=== PATIENT | female | born 1965 | race Caucasian/White ===

== ENCOUNTER 2018-09-18 13:40 | Outpatient (CLI) | payer BC ==
--- NOTE | 2018-09-18 16:24 | MRI ---
CERVICAL SPINE MRI WITHOUT IV CONTRAST: 09/18/18 HISTORY: 52-year-old female with history of M50.30 - cervical disc degeneration, pain in the back of the neck with numbness in thumbs. No significant abnormal marrow signal. Visualized brain and posterior fossa appear unremarkable. No a bnormal marrow signal. C2-C3 disc is unremarkable. C3-C4: No canal, lateral recess or foraminal stenosis. C4-C5: There is some generalized disc osteophytosis with mild indention of the ventral thecal sac as well as some mild left foraminal stenosis. C5-C6: There is diffuse disc osteophytosis with minimal indention of the ventral thecal sac but no si gnificant lateral recess or foraminal stenosis. C6-C7: No canal, lateral recess or foraminal stenosis. C7-T1: Unremarkable. No spinal cord mass or spinal cord compression. IMPRESSION: Mild disc osteophytosis changes particularly at C4-C5 and C5-C6 with mild indention of the ventral th ecal sac but without evidence for belinda cord compression. No other significant abnormality. POS: MANSI
== END 2018-09-18 13:41 | disposition home or self-care (01) ==
LOC: TBSIIMAG 13:40
PROVIDERS: ATTEND Neurological Surgery
DX: M50.30 Other cervical disc degeneration, unspecified cervical region (principal)
CPT/HCPCS: 72141

== ENCOUNTER 2019-03-25 06:21 | Day surgery (SDC) | payer BC ==
[2019-03-22 13:16] VITALS: BMI 34.5
[2019-03-25] MEDS ORDERED: Thrombin 5000 UNITS/5 ML VIAL ONE (06:37)
[2019-03-25] MEDS ORDERED: Sodium Chloride 0.9% 10 ML ONE (06:37)
[2019-03-25] MEDS ORDERED: Bacitracin Zinc Ointment 30 gm TUBE ONE (06:37)
[2019-03-25 07:17] LABS: #Eosinphils 0.2 thou/uL (0.0-0.7); #Lymphocytes 1.8 thou/uL (1.20-3.40); #Monocytes 0.7 thou/uL (0.11-0.59); #Neutrophils 5.4 thou/uL (1.40-6.50); %Basophils 0.5 % (0.0-1.0); %Eosinophils 2.2 % (0.0-10.0); %Lymphocytes 22.1 % (21.0-51.0); %Monocytes 8.9 % (0.0-10.0); %Neutrophils 66.4 % (42.0-75.0); Hemoglobin 12.2 g/dL (12.0-16.0); Mean Corpuscular HGB CONC 34.7 g/dL (32.0-36.0); Mean Corpuscular Hemoglobin 32.3 pg (27.0-31.0); Mean Corpuscular Volume 93.1 fL (78.0-98.0); Mean Platelet Volume 7.1 fL (7.4-10.4); Platelet Count 257 thou/uL (130-400); RBC Distribution Width 12.1 % (11.5-14.5); Red Blood Cell (RBC) Count 3.79 mill/uL (4.20-5.40); White Blood Cell (WBC) Count 8.2 thou/uL (4.8-10.8)
[2019-03-25] MEDS ORDERED: Fentanyl 100 MCG/2 ML VIAL ONE ×4 (07:21→10:49)
[2019-03-25 07:31] LABS: Anion Gap 12 mmol/L (10-20); BUN (Urea Nitrogen) 18 mg/dL (9.8-20.1); Calc. Creatinine Clearance 104 mL/min (70-130); Calcium 9.5 mg/dL (7.8-10.44); Carbon Dioxide 24 mmol/L (22-29); Chloride 109 mmol/L (98-107); Estimated GFR-MDRD 69; Glucose 101 mg/dL (70-105); Potassium 4.1 mmol/L (3.5-5.1); Sodium 141 mmol/L (136-145)
[2019-03-25] MEDS ORDERED: Levofloxacin 500 mg/D5W 100 ml Premix Bag ONE (07:33)
[2019-03-25] MEDS ORDERED: Clindamycin/D5W 900 mg/50 ml Premix Bag ONE (07:33)
[2019-03-25] MEDS ORDERED: Ondansetron HCl/PF 4 MG/2 ML Vial IVP PRN (09:53)
[2019-03-25] MEDS ORDERED: Non-Formulary Medication 1 EACH PO PRN (09:53)
[2019-03-25] MEDS ORDERED: Promethazine HCl 25 MG/ML VIAL IM/IV PRN (09:53)
[2019-03-25] MEDS ORDERED: HYDROcodone/Acetaminophen 5/325 mg Tablet PO PRN ×2 (09:58→09:59)
--- NOTE | 2019-03-25 11:41 | OP ---
DATE OF PROCEDURE: 03/25/2019 [employer]: Lex Whitley PA-C PROCEDURE PERFORMED: Anterior cervical diskectomy C4-C5 and C5-C6; interbody arthrodesis; intervertebral biomechanical device; local morselized autograft; demineralized bone matrix; anterior titanium instrumentation, C4-C5 and C5-C6. DESCRIPTION OF PROCEDURE: The patient was brought to the operating room and intubated. She was positioned supine with the head in modest extension on a gel-filled donut. An incision was made in the right precervical area and dissected medial to the sternocleidomastoid muscle, identified the anterior cervical spinal, and the level was confirmed by x-ray. We debrided anterior osteophytes, placed distraction across the disk spaces, and using the operative microscope and microdissection techniques, completely removed the intervertebral disks from foramen to foramen at C4-C5 and C5-C6. Next, bony endplates were decorticated for the purpose of arthrodesis, and appropriate-sized intervertebral biomechanical PEEK device was brought into the field filled with demineralized bone matrix and local morselized autograft, and tapped in place securely at C4-C5 and C5-C6. Next, an anterior plate was brought into the field and secured to C4, C5, and C6 using two 14-mm screws at each level. Wound was then extensively irrigated. Maximum hemostasis was secured, and the wound was closed in anatomic layers. Job ID: [id number]
[2019-03-25] MEDS ORDERED: HYDROcodone/Acetaminophen 5/325 mg Tablet ONE ×2 (12:45→13:24)
[2019-03-25] MEDS ORDERED: Lidocaine 1% PF 5 ML VIAL ONE ×2 (13:14→13:50)
[2019-03-25] MEDS ORDERED: Calcium Chloride 1 GM/10 ML Abboject SYRINGE ONE (13:14)
[2019-03-25] MEDS ORDERED: PHENYLEPHRINE-NS 100 MCG/ML 10 ML SYRINGE ONE (13:14)
[2019-03-25] MEDS ORDERED: PROPOFOL 200 MG/20 ML VIAL ONE ×2 (13:14→13:50)
[2019-03-25] MEDS ORDERED: ePHEDrine 50 MG/ML VIAL ONE (13:14)
[2019-03-25] MEDS ORDERED: Glycopyrrolate 0.2 MG/ML 5 ML SYRINGE ONE ×2 (13:14→13:50)
[2019-03-25] MEDS ORDERED: Ondansetron PF 4 MG/2 ML Vial ONE ×2 (13:14→13:50)
[2019-03-25] MEDS ORDERED: Rocuronium Bromide 10 MG/ML (10ML VIAL) ONE ×2 (13:14→13:50)
== END 2019-03-25 13:33 | disposition home or self-care (01) ==
LOC: SDC 06:21
PROVIDERS: ATTEND Neurological Surgery
PROC: 0RG20A0 Fusion of 2 or more Cervical Vertebral Joints with Interbody Fusion Device, Anterior Approach, Anterior Column, Open Approach (ICD-10-PCS; principal; 2019-03-25)
PROC: 0RT30ZZ Resection of Cervical Vertebral Disc, Open Approach (ICD-10-PCS; principal; 2019-03-25)
DX: M50.121 Cervical disc disorder at C4-C5 level with radiculopathy (principal); M51.36 Other intervertebral disc degeneration, lumbar region; M19.90 Unspecified osteoarthritis, unspecified site; G43.909 Migraine, unspecified, not intractable, without status migrainosus; E07.9 Disorder of thyroid, unspecified; Z79.1 Long term (current) use of non-steroidal anti-inflammatories (NSAID); Z79.51 Long term (current) use of inhaled steroids; Z79.899 Other long term (current) drug therapy; Z88.0 Allergy status to penicillin; Z88.5 Allergy status to narcotic agent; Z98.890 Other specified postprocedural states
CPT/HCPCS: 36415; 76000; 80048; 85025; 93005; 93010; C1713; C1776; J1956; J2001; J2405; J2704; J3010; J3490

== ENCOUNTER 2019-04-09 08:33 | Outpatient (CLI) | payer BC ==
--- NOTE | 2019-04-09 10:46 | RAD ---
CERVICAL SPINE 3 VIEWS: Date: 04/09/19 HISTORY: Cervical radiculopathy, follow-up post surgery. FINDINGS: Anterior cervical fusion changes at C4, C5, and C6 with intradiscal prosthesis. No significant malali gnment. No significant abnormal prevertebral soft tissue swelling. Very mild anterolisthesis of C7 on T1. IMPRESSION: Unremarkable status post anterior cervical fusion at C4, C5, and C6. POS: C
== END 2019-04-09 08:34 | disposition home or self-care (01) ==
LOC: TBSIIMAG 08:33
PROVIDERS: ATTEND Neurological Surgery
DX: M54.12 Radiculopathy, cervical region (principal)
CPT/HCPCS: 72040

== ENCOUNTER 2019-05-29 13:26 | Outpatient (CLI) | payer BC ==
--- NOTE | 2019-05-29 15:38 | RAD ---
THREE VIEWS OF THE CERVICAL SPINE: 05/29/19 COMPARISON: 04/09/19. HISTORY: Neck pain. Patient had cervical fusion on March 25. FINDINGS: Three views of the cervical spine shows the patient to be status post anterior fusion of C4 through C 6 with an anterior plate and screws. Disc spacers are seen in good position within the disc spaces. T he vertebral bodies demonstrate normal height and alignment without fracture or subluxation. No preve rtebral soft tissue swelling is seen. IMPRESSION: Postsurgical changes of the cervical spine without evidence of complication. POS: KLARISSA
== END 2019-05-29 13:27 | disposition home or self-care (01) ==
LOC: TBSIIMAG 13:26
PROVIDERS: ATTEND Neurological Surgery
DX: M50.30 Other cervical disc degeneration, unspecified cervical region (principal); Z98.1 Arthrodesis status
CPT/HCPCS: 72040

== ENCOUNTER 2019-09-10 15:28 | Outpatient (CLI) | payer BC ==
--- NOTE | 2019-09-10 16:37 | MRI ---
Exam: MRI cervical spine without contrast HISTORY: Cervical fusion. Degenerative disc disease. Surgery in March 2019. Persistent pain radiating i n the left shoulder, into the elbow. COMPARISON: 09/18/2018 FINDINGS: Persistent straightening of normal cervical lordosis. Interval cervical fusion from C4 through C6 wi th anterior fusion plate and transvertebral body screw. Associated metallic susceptibly artifact. Disc prosthesis at C4-C5 and C5 C6. No significant STIR hyperintensity to suggest vertebral body dionisio a or ligamentous injury. Appropriate T1 marrow signal intensity of the C2, C3 and C7 vertebral bodies, as well as the upper thoracic vertebra. Visualized brain parenchyma, cervical medullary junction, cervical cord and the upper thoracic cord h ave a normal size and intensity. C2-C3: No significant central canal stenosis. Mild to moderate right neural foraminal narrowing due t o uncovertebral and facet hypertrophy. Left neural foramen is patent. C3-C4: Broad-based disc bulge abuts the thecal sac. No significant central canal stenosis. Bilaterall y, the neural foramina are patent. C4-C5: Central osteophyte ridge. Disc prosthesis. Mild central canal stenosis. Bilaterally, the neura l foramina are patent. C5-C6: Broad-based osteophyte ridge. Disc prosthesis. No significant central canal stenosis. Bilatera lly, neural foramina are patent. C6-C7: Mild loss of disc space height. Broad-based discussed by complex. Mild mass effect upon the th ecal sac. No significant central canal stenosis. Bilaterally, neural foramina are patent C7-T1: No significant central canal stenosis or significant neural foraminal narrowing. IMPRESSION: 1. Anterior cervical fusion from C4 through C6. 2. No significant central canal stenosis or significant neural foraminal narrowing Transcribed Date/Time: 09/10/2019 5:05 PM
== END 2019-09-10 15:29 | disposition home or self-care (01) ==
LOC: TBSIIMAG 15:28
PROVIDERS: ATTEND Neurological Surgery
DX: M50.30 Other cervical disc degeneration, unspecified cervical region (principal); Z98.1 Arthrodesis status
CPT/HCPCS: 72141

== ENCOUNTER 2019-09-18 12:45 | Outpatient (CLI) | payer BC ==
--- NOTE | 2019-09-18 14:21 | RAD ---
CERVICAL SPINE 5 VIEWS: Date: 09/18/19 HISTORY: Postop follow-up. Cervical pain. FINDINGS: Postop changes are noted with anterior plate and screws transfixing C4, C5, and C6. Interbody disc im plants are noted. Plate and screws and implants appear adequately positioned. Posterior alignment is maintained. There is loss of disc space at C7-T1 and mild degenerative change. No abnormal listhesis or subluxation seen with flexion or extension. IMPRESSION: Postoperative changes as described. POS: OFF
== END 2019-09-18 12:46 | disposition home or self-care (01) ==
LOC: TBSIIMAG 12:45
PROVIDERS: ATTEND Neurological Surgery
DX: M50.30 Other cervical disc degeneration, unspecified cervical region (principal); Z98.890 Other specified postprocedural states
CPT/HCPCS: 72050

== ENCOUNTER 2024-03-24 16:38 | Inpatient (IN) | payer BC ==
[2024-03-24] MEDS ORDERED: Acetaminophen 500 MG TAB ONE (17:18)
[2024-03-24] MEDS ORDERED: Orphenadrine Citrate 60 MG/2 ML VIAL ONE (17:18)
[2024-03-24] MEDS ORDERED: HYDROmorphone 0.5 MG/0.5 ML SYRINGE ONE ×2 (17:18→19:31)
[2024-03-24] MEDS ORDERED: Acetaminophen 325 MG TAB PO PRN (19:24)
[2024-03-24] MEDS ORDERED: Ondansetron PF 4 MG/2 ML Vial IVP PRN (19:24)
[2024-03-24] MEDS ORDERED: HYDROmorphone 0.5 MG/0.5 ML SYRINGE SLOW IVP PRN (19:28)
[2024-03-24 20:13] VITALS: BMI 36.1
[2024-03-24] MEDS: Enoxaparin 40 MG (0.4 mL) SYRINGE SC SCH (21:35)
[2024-03-24] MEDS: HYDROcodone/Acetaminophen 10/325 mg Tablet PO PRN (21:40)
[2024-03-25] MEDS: fentaNYL 50 mcg/mL 1 mL Vial SLOW IVP PRN (00:12)
[2024-03-25 07:45] LABS: #Basophils 0.05 10x3/uL (0.0-0.2); %Basophils 0.3 % (0.0-1.0); %Eosinophils 0.2 % (0.0-10.0); %Monocytes 6.2 % (0.0-10.0); Hematocrit 40.2 % (36.0-47.0); Hemoglobin 13.2 g/dL (12.0-16.0); Mean Corpuscular HGB CONC 32.8 g/dL (32.0-36.0); Mean Corpuscular Hemoglobin 30.4 pg (27.0-31.0); Mean Corpuscular Volume 92.6 fL (78.0-98.0); Mean Platelet Volume 9.5 fL (7.4-10.4); Platelet Count 298 10x3/uL (130-400); RBC Distribution Width 13.2 % (11.5-14.5); Red Blood Cell (RBC) Count 4.34 mill/uL (4.20-5.40)
[2024-03-25 08:04] LABS: Anion Gap 14 mmol/L (10-20); BUN (Urea Nitrogen) 19 mg/dL (9.8-20.1); Calc. Creatinine Clearance 109 mL/min (70-130); Calcium 8.6 mg/dL (7.8-10.44); Carbon Dioxide 22 mmol/L (22-29); Chloride 108 mmol/L (98-107); Estimated GFR 84; Glucose 80 mg/dL (70-105); Potassium 3.7 mmol/L (3.5-5.1); Sodium 140 mmol/L (136-145)
[2024-03-25] MEDS: predniSONE 50 MG TAB PO SCH (08:04)
[2024-03-25] MEDS: Ketorolac Tromethamine 30 MG (1 mL) VIAL IVP SCH (12:08)
[2024-03-25] MEDS: Gabapentin 300 MG CAP PO SCH ×2 (12:10→21:31)
[2024-03-25] MEDS: tiZANidine HCl 4 MG TAB PO PRN (12:56)
[2024-03-25] MEDS ORDERED: Naloxone HCl 0.4 mg/ml Vial IV PRN (13:47)
[2024-03-25] MEDS ORDERED: diphenhydrAMINE 50 MG/ML VIAL IVP PRN (13:47)
[2024-03-25] MEDS ORDERED: diphenhydrAMINE 50 MG/ML VIAL IM PRN (13:47)
[2024-03-25] MEDS ORDERED: diphenhydrAMINE 25 MG CAP PO PRN (13:47)
[2024-03-25] MEDS ORDERED: Promethazine HCl 25 MG/ML VIAL IM PRN (13:47)
[2024-03-25] MEDS ORDERED: Ondansetron PF 4 MG/2 ML Vial IVP PRN (13:47)
[2024-03-25] MEDS ORDERED: Communication Order-Pharmacy FS SCH (14:00)
[2024-03-25] MEDS: FENTANYL 500 MCG/10 ML VIAL 2,000 MCG in Sodium Chloride 0.9% 60 ML IV PRN (15:13)
[2024-03-25] MEDS: HYDROcodone/Acetaminophen 10/325 mg Tablet PO SCH (15:20)
[2024-03-25] MEDS: Fluticasone Propionate Nasal Spray 16 gm Bottle NASAL SCH (21:30)
[2024-03-25] MEDS: Enoxaparin 40 MG (0.4 mL) SYRINGE SC SCH (21:31)
[2024-03-25] MEDS: Spironolactone 25 MG TAB PO SCH (21:31)
[2024-03-25] MEDS: Polyethylene Glycol 3350 17 GM Packet PO SCH (22:05)
[2024-03-26] MEDS: Levothyroxine 175 MCG TAB PO SCH (07:18)
[2024-03-26] MEDS: Pantoprazole DR 40 MG TAB PO SCH (08:35)
[2024-03-26] MEDS: Polyethylene Glycol 3350 17 GM Packet PO SCH (08:35)
[2024-03-26] MEDS: Gabapentin 300 MG CAP PO SCH ×2 (10:16→14:55)
[2024-03-26] MEDS: Ketorolac Tromethamine 30 MG (1 mL) VIAL IVP SCH (12:05)
[2024-03-26] MEDS: HYDROcodone/Acetaminophen 10/325 mg Tablet PO SCH (13:22)
[2024-03-27 08:32] VITALS: BP 144/75; TEMP 98.1
== END 2024-03-27 11:23 | disposition home or self-care (01) | DRG 552 ==
LOC: ERS 16:38 → T4-A 18:38
PROVIDERS: ADMIT Family Medicine; ATTEND Internal Medicine
DX: M51.16 Intervertebral disc disorders with radiculopathy, lumbar region (principal); Z88.0 Allergy status to penicillin; Z88.5 Allergy status to narcotic agent; Z79.899 Other long term (current) drug therapy; E03.9 Hypothyroidism, unspecified; K21.9 Gastro-esophageal reflux disease without esophagitis; Z90.710 Acquired absence of both cervix and uterus; Z87.891 Personal history of nicotine dependence; L68.0 Hirsutism; E66.9 Obesity, unspecified; Z68.30 Body mass index [BMI] 30.0-30.9, adult; M54.42 Lumbago with sciatica, left side
CPT/HCPCS: 36415; 80048; 85025; 93970; 96374; 96375; 96376; J1100; J1170; J1650; J1885; J2360; J2405; J3010; J3360; J3490; J7512

== ENCOUNTER 2024-11-04 06:47 | Day surgery (SDC) | payer BC ==
[2024-11-01 15:34] VITALS: BMI 35.4
[2024-11-04] MEDS ORDERED: Vancomycin 1 GM VIAL ONE (08:20)
[2024-11-04] MEDS ORDERED: fentaNYL PF 100 MCG/2 ML SYRINGE ONE ×2 (09:11→10:19)
[2024-11-04] MEDS ORDERED: Rocuronium Bromide 10 MG/ML (10ML VIAL) ONE (09:11)
[2024-11-04] MEDS ORDERED: Lidocaine 1% PF 5 ML VIAL ONE (09:11)
[2024-11-04] MEDS ORDERED: PROPOFOL 20 ML ONE (09:11)
[2024-11-04] MEDS ORDERED: Clindamycin/D5W 900 mg/50 ml Premix Bag ONE (09:15)
[2024-11-04] MEDS ORDERED: LevoFLOXacin D5W 500 mg (100 mL) BAG ONE (09:16)
[2024-11-04 09:32] LABS: Hematocrit 40.1 % (36.0-47.0); Hemoglobin 13.1 g/dL (12.0-16.0); Mean Corpuscular HGB CONC 32.7 g/dL (32.0-36.0); Mean Corpuscular Hemoglobin 30.2 pg (27.0-31.0); Mean Corpuscular Volume 92.4 fL (78.0-98.0); Mean Platelet Volume 9.5 fL (7.4-10.4); Platelet Count 259 10x3/uL (130-400); RBC Distribution Width 13.1 % (11.5-14.5); Red Blood Cell (RBC) Count 4.34 mill/uL (4.20-5.40)
[2024-11-04 09:49] LABS: Anion Gap 14 mmol/L (10-20); BUN (Urea Nitrogen) 12 mg/dL (9.8-20.1); Calc. Creatinine Clearance 100 mL/min (70-130); Calcium 9.8 mg/dL (7.8-10.44); Carbon Dioxide 26 mmol/L (22-29); Chloride 106 mmol/L (98-107); Estimated GFR 77; Glucose 96 mg/dL (70-105); Potassium 3.9 mmol/L (3.5-5.1); Sodium 142 mmol/L (136-145)
[2024-11-04] MEDS ORDERED: Ondansetron PF 4 MG/2 ML Vial ONE (10:23)
[2024-11-04] MEDS ORDERED: Ketorolac Tromethamine 30 MG (1 mL) VIAL ONE (10:23)
[2024-11-04] MEDS ORDERED: Dexamethasone 20 MG/5 ML VIAL ONE (10:23)
[2024-11-04] MEDS ORDERED: SUGAMMADEX SODIUM 200 MG/2 ML VIAL ONE (10:53)
[2024-11-04] MEDS ORDERED: Lidocaine 2% PF 5 ML VIAL ONE (10:58)
[2024-11-04] MEDS ORDERED: fentaNYL 50 mcg/mL 1 mL Vial ONE (11:45)
[2024-11-04] MEDS ORDERED: HYDROmorphone 0.5 MG/0.5 ML SYRINGE ONE (11:45)
[2024-11-04] MEDS ORDERED: HYDROcodone/Acetaminophen 10/325 mg Tablet ONE (12:45)
[2024-11-04] MEDS ORDERED: Cyclobenzaprine 10 MG TAB ONE (13:29)
[2024-11-04] MEDS ORDERED: Promethazine HCl 25 MG/ML VIAL ONE (14:05)
[2024-11-04] MEDS ORDERED: HYDROcodone/Acetaminophen 5/325 mg Tablet ONE (16:07)
== END 2024-11-04 16:15 | disposition home or self-care (01) ==
LOC: SDC 06:47
PROVIDERS: ATTEND Neurological Surgery
PROC: 0SH Lower Joints, Insertion (ICD-10-PCS; principal; 2024-11-04)
PROC: 00NY0ZZ Release Lumbar Spinal Cord, Open Approach (ICD-10-PCS; principal; 2024-11-04)
DX: M48.061 Spinal stenosis, lumbar region without neurogenic claudication (principal); M43.16 Spondylolisthesis, lumbar region; Z78.0 Asymptomatic menopausal state; Z91.011 Allergy to milk products; Z88.0 Allergy status to penicillin; Z88.5 Allergy status to narcotic agent; Z79.899 Other long term (current) drug therapy
CPT/HCPCS: 80048; 85027; 93005; 93010; C1713; C1889; J1100; J1171; J1885; J1956; J2405; J2550; J2704; J3010; J3370; J3490